=== PATIENT | female | born 1940 | race Caucasian/White ===

== ENCOUNTER 2019-12-15 06:04 | Day surgery (SDC) | payer MEDICARE, SELFPAY ==
[2019-12-15] MEDS: Tropicam./Phenyleph. (1/2.5%) 5 ML BTL OS ×3 (06:44→06:52)
[2019-12-15] MEDS: Lidocaine 1% Pres-Free 5 ML VIAL (07:32)
[2019-12-15] MEDS: Moxifloxacin-PF 1 MG/ML VIAL (07:33)
[2019-12-15] MEDS: Balanced Salt Soln.-PLUS 500 ML BAG (07:34)
[2019-12-15] MEDS: Lidocaine 2% Jelly 6 ML SYR (07:35)
[2019-12-15] MEDS: Povidone-Iodine Ophth 30 ML BTL (07:36)
[2019-12-15] MEDS: Tetracaine 0.5% 4 ML BTL OS (07:39)
--- NOTE | 2019-12-15 07:59 | W.PM.DSUDISC ---
Discharge Plan Disposition Patient Disposition: HOME Condition: Good Discharge Details Attending Provider: Jose R Grant Primary Care Provider: Dee Whitfield Home Meds and New Rx's Prescriptions: No Action simvastatin 5 MG tablet 5 mg PO DAILY RF: 0 polyethylene glycol 3350 [Miralax] 17 GM powder in packet 255 gm PO for colonoscopy Qty: 1 RF: 0 bisacodyl [Dulcolax (bisacodyl)] 5 MG tablet,delayed release (DR/EC) 5 mg PO ONCE Qty: 4 RF: 0 omeprazole 20 mg Capsule,Delayed Release(Dr/Ec) 20 mg PO DAILY RF: 0 acetaminophen [Tylenol Arthritis] 650 mg Tablet Extended Release PO DAILY AM RF: 0 No Doz 100 mg Tablet PO DAILY AM RF: 0 Discharge Instructions Stand Alone Forms: Post-op Topical Cataract, Marlon Ganey (DSU) Discharge Orders Discharge Orders: Discharge Order (Routine); Ordered 12/15/19 Ordered By: Jose R Grant DS: Diagnosis Discharge Diagnosis (1) Nuclear sclerotic cataract of left eye: Status: Resolved
--- NOTE | 2019-12-15 08:00 | ROE_ITS ---
Date of service: 12/15/19 Time of Service: 08:00 Operative Note Operative Note DATE OF PROCEDURE: 12/15/19 PRE-OP DIAGNOSIS: Nuclear, left eye POST-OP DIAGNOSIS: same PROCEDURE: Cataract extraction using phacoemulsification with intraocular lens implant, left eye SURGEON: Jose R Grant ANESTHESIA: MAC and local (sub-tenon's anesthetic infiltration) PATHOLOGY: none sent COMPLICATIONS: None Patient was transported to: same day Patient's condition: stable Implants: [employer] / [employer] Tecnis ZCB00 Indications: Progressive decreased vision due to cataract, left eye Procedure Description: CATARACT SURGERY OPERATIVE REPORT PREOPERATIVE DIAGNOSIS: Nuclear cataract, left eye POSTOPERATIVE DIAGNOSIS: Same OPERATION: Cataract extraction using phacoemulsification with posterior chamber intraocular lens implant, left eye. IOL: IOL Coastal Tug Mate/Model: [employer] / LAZARO Tecnis [id number] IOL Power: + 17.50 diopters IOL Serial Number: [id number] Optic Diameter: 6.0mm Haptic/Overall Diameter: 13.0mm PHACO INFO: Natan Boticcaurion Vision System with OZil and Active Fluidics Cumulative Dispersed Energy (CDE): 21.25 seconds SURGEON: Jose R Grant MD, [facility] ANESTHESIA: Monitored Anesthesia Care (MAC), with local sub-tenon's anesthetic infiltration COMPLICATIONS: None SPECIMENS: None INDICATIONS FOR PROCEDURE: Patient is a 75-year-old lady with history of having undergone cataract surgery in her left eye. She has now developed a significant cataract in her left eye. The option of cataract surgery with patient is 25 but she wished to proceed. PROCEDURE: The correct surgical eye was identified and marked as the left eye and the pupil was dilated in the preoperative area using mydriatics and cycloplegics. The dilated pupil size was 7.0 mm. Oral sedation was administered in the form of an Imprimis MKO Melt (midazolam 3mg/ketamine 25mg/ondansetron 2mg). The patient was brought to the operating room where cardiopulmonary monitoring was instituted and surgical time-out was performed, confirming the correct operative eye and IOL power. Topical anesthesia was administered and ophthalmic povidone-iodine 5% was instilled into the conjunctival fornices. Lidocaine gel was applied to the cornea and the rocael-ocular area was prepped with Betadine 10% solution and draped in the usual sterile fashion for intraocular surgery, including an aperture drape. A Tegaderm transparent film dressing was cut in half and used to cover the lashes and lid margins. Care was taken to sequester the lashes and lid margins under the Tegaderm dressing. A lid speculum was placed between the lids of the operative eye and the Vicenta-Mirela operating microscope was maneuvered into position. Jad scissors were then used to make a conjunctival buttonhole approximately 6mm posterior to the limbus in the inferonasal quadrant. Blunt dissection was carried out to expose bare sclera, and a blunt-tipped sub-tenon?s anesthesia cannula was introduced and passed posteriorly along the globe where non- preserved plain lidocaine was injected into posterior sub-Tenon?s space. A sideport knife was used to make a paracentesis port superior/superiortemporally. Intraocular phenylephrine/lidocaine was injected into the anterior chamber. The anterior chamber was then filled with Healon Pro. A 2.4mm keratome knife was used to create a half-thickness groove at the limbus and then to construct a three-plane near-clear corneal tunnel extending 2.0mm into clear cornea in the temporal position. . A flap was raised on the anterior capsule and capsulorhexis forceps were used to complete a continuous curvilinear capsulorhexis of 4.8 mm. Balanced salt solution was then used to perform cortical cleaving hydrodissection and nuclear hydrodelineation until the lens could be freely rotated within the capsular bag. The lens nucleus was then disassembled and removed within the capsular bag and iris plane using phacoemulsification. Residual cortical material was removed using the 45-degree angled silicone I/A tip with 0.3mm port. The posterior capsule was carefully polished to remove as much residual lens epithelial cells as safely possible. The capsular bag was then inflated and the anterior chamber deepened with viscoelastic. The lens implant described above was inserted into the capsular bag using the LAZARO [place] Injector. A Kuglen hook was used to dial the IOL into position. Residual viscoelastic was then removed first from posterior to the IOL, then from the anterior chamber using the I/A handpiece. The lens implant was noted to center nicely within the capsular bag. The incisions were stromally hydrated, and the anterior chamber was reformed using BSS. Then 0.5cc of moxifloxacin 1.0mg/ml were injected into the capsular bag and anterior chamber. The incisions were checked with a Weck spear and found to be secure. Several drops of ophthalmic povidone-iodine 5% were then applied to the eye followed by two drops of Imprimis combination prednisolone/moxifloxacin/nepafenac solution. The drapes were removed and a clear plastic protective eye shield was placed over the eye. The patient was then returned to [facility] in stable condition.
[2019-12-15 08:21] VITALS: BP 117/60; PULSE 53; RESP 16; TEMP 36.1; O2SAT 97
== END 2019-12-15 08:36 | disposition home or self-care (01) ==
PROVIDERS: PCP Legal Medicine; Visit Provider Ophthalmology
PROC: (CPT 66984; principal; 2019-12-15 07:30)
DX: H25.812 Combined forms of age-related cataract, left eye (principal); K21.9 Gastro-esophageal reflux disease without esophagitis
CPT/HCPCS: 66984; V2632